=== PATIENT | female | born 1935 | race Caucasian/White ===

== ENCOUNTER 2017-05-23 08:40 | Day surgery (SDC) | payer BC ==
[~2017-05-23] VITALS: Ht 160 cm; Wt 52.2 kg
[2017-05-23] MEDS ORDERED: PROPOFOL 200MG/ 20ML VIAL (DIPRIVAN) IV ONE (08:41)
[2017-05-23] MEDS ORDERED: fentaNYL CITRATE/PF 100 MCG/2 ML AMP IVP ONE (08:41)
[2017-05-23] MEDS ORDERED: LR 1,000 ML IV.SOLN IV ONE (08:41)
[2017-05-23] MEDS ORDERED: ONDANSETRON HCL 4 MG/2 ML VIAL IVP ONE (08:41)
[2017-05-23] MEDS ORDERED: CEFAZOLIN 2 GM IVPB PREMIX 50 ML IV ONE (08:41)
[2017-05-23] MEDS ORDERED: KETOROLAC TROMETHAMINE 30 MG VIAL IVP ONE (08:41)
[2017-05-23] MEDS ORDERED: BUPIVACAINE /EPINEPHRINE/PF 0.25% 30 ML VIAL INJ ONE (08:41)
[2017-05-23] MEDS ORDERED: MIDAZOLAM HCL 5 MG/ML VIAL (VERSED) IV ONE (08:41)
[2017-05-23] MEDS ORDERED: SEVOFLURANE 15 MIN GAS INH ONE (08:41)
[2017-05-23] MEDS ORDERED: LISI40TA4 PO (10:25)
[2017-05-23] MEDS ORDERED: AMLO5TAB4 PO (10:25)
[2017-05-23] MEDS ORDERED: METO50TA7 PO (10:25)
[2017-05-23 10:31] LABS: BASOPHILS # (AUTO) 0.2 K/uL (0.0-0.2); BASOPHILS % (AUTO) 2.6 % (0.0-2.0); EOSINOPHILS # (AUTO) 0.1 K/uL (0.0-0.4); HEMATOCRIT 30.3 % (36-48); HEMOGLOBIN 10.1 g/dL (12.0-16.0); LYMPHOCYTES # (AUTO) 0.9 K/uL (1.0-5.5); LYMPHOCYTES % (AUTO) 13.3 % (20.5-51.5); MEAN CORPUSCULAR HEMOGLOBIN 30 pg (27-31); MEAN CORPUSCULAR HGB CONC 34 % (32-36); MEAN CORPUSCULAR VOLUME 88 fL (79.0-98.0); MONOCYTES # (AUTO) 0.5 K/uL (0.0-1.0); MONOCYTES % (AUTO) 6.9 % (1.7-9.3); NEUTROPHILS # (AUTO) 5.2 K/uL (1.8-7.7); NEUTROPHILS % (AUTO) 76.2 % (40.0-70.0); PLATELET COUNT (AUTO) 252 K/uL (130-430); RED BLOOD CELL COUNT(AUTO) 3.43 MIL/uL (4.2-6.2); RED CELL DISTRIBUTION WIDTH 12.5 % (9.0-15.0); WHITE BLOOD COUNT (AUTO) 6.9 K/uL (4.8-10.8)
[2017-05-23 10:42] LABS: ANION GAP 9 (5-15); CALCIUM 9.6 mg/dL (8.4-11.0); CHLORIDE 103 mmol/L (98-107); CREATININE 1.08 mg/dL (0.55-1.30); GLUCOSE 94 mg/dL (70-99); POTASSIUM 4.3 mmol/L (3.5-5.1); SODIUM SERUM 136 mmol/L (136-145); UREA NITROGEN, BLOOD 34 mg/dL (8-21)
[2017-05-23 10:56] LABS: PROTHROMBIN TIME 10.6 SECS (9.5-12.5)
[2017-05-23] MEDS ORDERED: POLYMYXIN 500,000/BACIT.10,000 UNITS in NS IRR 1 L IR ONE (12:34)
[2017-05-23] MEDS ORDERED: LR 1,000 ML IV SCH (13:08)
[2017-05-23] MEDS ORDERED: ePHEDrine sulfate 50 MG/ML VIAL IVP PRN (13:15)
[2017-05-23] MEDS ORDERED: HYDROmorphone 1 MG INJ. 1 MG/ML AMPUL IVP PRN (13:15)
[2017-05-23] MEDS ORDERED: ONDANSETRON HCL 4 MG/2 ML VIAL IVP PRN (13:15)
[2017-05-23] MEDS ORDERED: HYDROmorphone 2 MG/ML VIAL IVP PRN ×2 (13:15)
[2017-05-23] MEDS ORDERED: MEPERIDINE HCL/PF 25 MG/ML DISP.SYRIN IVP PRN ×2 (13:15)
[2017-05-23 16:00] VITALS: BP_SYST 122
[2017-05-23 16:12] VITALS: BP_SYST 124
[2017-05-23] MEDS ORDERED: NACL 0.9% 1,000 ML IV SCH (16:45)
[2017-05-23] MEDS ORDERED: HYDROcodone/ACETAMIN 10-325 MG TAB PO PRN (16:45)
[2017-05-23] MEDS ORDERED: FLU VACC QS 2017-18(36MOS+)/PF 0.5 ML/SYR SYRINGE I.M. PRN (17:45)
[2017-05-23 20:00] VITALS: BP_SYST 123
[2017-05-23 23:53] VITALS: BP_SYST 124
[2017-05-24 03:42] VITALS: BP_SYST 116
[2017-05-24 11:08] VITALS: BP_SYST 123
[2017-05-24 11:25] VITALS: BP_SYST 138
== END 2017-05-24 11:25 | disposition home or self-care (01) ==
LOC: SDS 08:40 → SMU 08:55 → SDS 05-24 11:25
PROVIDERS: ATTEND Orthopaedic Surgery
DX: S52.501A Unspecified fracture of the lower end of right radius, initial encounter for closed fracture (principal); S82.841A Displaced bimalleolar fracture of right lower leg, initial encounter for closed fracture; V89.2XXA Person injured in unspecified motor-vehicle accident, traffic, initial encounter; Y93.9 Activity, unspecified; Y92.89 Other specified places as the place of occurrence of the external cause; Y99.9 Unspecified external cause status; I10 Essential (primary) hypertension; Z79.899 Other long term (current) drug therapy
CPT/HCPCS: 25606; 25651; 27814; 36415; 71010; 76000; 76001; 80048; 85025; 85610; 85730; 87081; 93005; C1713 ×3; C1763; J0690; J1885; J2250; J2405; J2704; J3010; J3490; J7030; J7120; Q2037